=== PATIENT | male | born 1955 | race Caucasian/White ===

== ENCOUNTER 2021-01-22 23:14 | Inpatient (IN) | payer OTHER, SELFPAY ==
[2021-01-22] VITALS (8 sets, daily range): BP systolic 152–155; BP diastolic 106–108; PULSE 79–88; RESP 18–24; TEMP 36.6; O2SAT 87–96
--- NOTE | ~2021-01-22 | XR_ITS ---
EXAMINATION: XR chest 1V portable EXAM DATE: 01/24/2021 13:32 INDICATION: SOB, COVID+ PNA. TECHNIQUE: Portable AP frontal chest x-ray was obtained. Comparison is made to prior examination from 01/23/2021. FINDINGS: Mild progression in the patchy bilateral acute airspace disease identified yesterday. No pn eumothorax or pleural effusion. Mild cardiomegaly. There are no osseous abnormalities identified. IMPRESSION: Mild progression in pneumonia. Reviewed, dictated and finalized at location A.
--- NOTE | ~2021-01-22 | CT_ITS ---
EXAMINATION: CTA chest PE protocol DATE: 01/23/2021 01:55 INDICATION: Shortness of breath. Hypoxia. TECHNIQUE: Computed tomography angiography (CTA) of the chest was performed with 100 mL Omnipaque-350 intravenous contrast timed to evaluate the pulmonary arteries. Coronal maximum intensity projection 3D-reconstructions were created by the technologist. Automated exposure control and iterative reconst ruction technique were employed. Exam dose: 653.85 mGy-cm total exam DLP. COMPARISON: 01/23/2021 AP and lateral chest FINDINGS: There is diagnostic contrast enhancement of the pulmonary arteries. There are posterolatera l and posteromedial left lower lobe pulmonary artery filling defects, consistent with left lower lobe pulmonary embolism. No thoracic aortic aneurysm or dissection. Normal heart size. No pericardial or pleural effusion. There are mild bilateral pleural effusions. There are patchy bilateral upper lobe, middle lobe and lower lobe infiltrates and bilateral lower lob e dependent atelectasis. No pneumothorax. 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 IMPRESSION: Mild left lower lobe pulmonary embolism Diffuse patchy bilateral pulmonary infiltrates Mild pleural effusions Dr. Forman telephoned the report of multiple left lower lobe small pulmonary emboli on 01/23/2021 at 08 50 hours to emergency room physician Dr. Toribio. Reviewed, dictated and finalized at Location A. Reviewed, dictated and finalized at location A. IMPRESSION: Mild left lower lobe pulmonary embolism Diffuse patchy bilateral pulmonary infiltrates Mild pleural effusions Dr. Forman telephoned the report of multiple left lower lobe small pulmonary embo li on 01/23/2021 at 0850 hours to emergency room physician Dr. Toribio.
--- NOTE | ~2021-01-22 | US_ITS ---
EXAMINATION: US venous doppler [facility] DATE: 01/26/2021 17:20 INDICATION: Right lower limb edema. TECHNIQUE: Grayscale ultrasound images without and with compression and Doppler ultrasound images of the bilateral lower extremity veins were obtained. COMPARISON: None. FINDINGS: The visualized portions of right common femoral vein, profunda (deep) femoral vein, femoral vein, pop liteal vein, peroneal veins, and greater saphenous vein outflow are patent. There is thrombus in a ri ght posterior tibial vein. The visualized portions of left common femoral vein, profunda femoral vein, femoral vein, popliteal v ein, peroneal veins, posterior tibial veins, and greater saphenous vein outflow are patent. IMPRESSION: 1. Deep vein thrombosis involving a right posterior tibial vein. Reviewed, dictated and finalized at location A.
--- NOTE | ~2021-01-22 | XR_ITS ---
XR chest 2V DATE: 01/23/2021 00:19 INDICATION: Shortness of breath, hypoxia TECHNIQUE: AP and lateral views COMPARISON: None FINDINGS: Normal heart size. No hilar or mediastinal enlargement. There are mild patchy infiltrates, greater in the lower lung zones. There is mild prominence of the fissures which may indicate subpleural edema. Small posterior pleural effusions are suggested. No pneumothorax. IMPRESSION: Mild patchy bilateral pulmonary infiltrates, small pleural effusions Reviewed, dictated and finalized at location A. IMPRESSION: Mild patchy bilateral pulmonary infiltrates, small pleural effusion s
--- NOTE | 2021-01-22 23:26 | PC.NURSE ---
Patient was placed on 2L via NC and O2 sat increased to 90%, increased O2 to 3L, patient O2 sat now at 92%.
[2021-01-23] VITALS (53 sets, daily range): BP systolic 127–172; BP diastolic 83–114; PULSE 70–92; RESP 14–35; TEMP 35.9–37.8; O2SAT 88–99; BMI 31.0
--- NOTE | 2021-01-23 00:01 | ECG_ITS ---
Measurements Intervals [place] Rate: 82 P: 45 NH: 147 QRS: 62 QRSD: 94 T: 110 QT: 387 QTc: 453 Interpretive Statements SINUS RHYTHM DELAYED PRECORDIAL R/S TRANSITION T WAVE ABNORMALITY IN ANTERIOR LEADS- CONSIDER ISCHEMIA BASELINE ARTIFACT- I, II, III, AVR, AVL, AVF, V3-V6 ABNORMAL ECG Electronically Signed On 01-23-2021 7:36:01 CDT by Dallas Lock D.O.
[2021-01-23 00:27] LABS: Basophils Absolute Auto 0.1 K/mm3 (0.0-0.1); Basophils Percent Auto 0.5 % (0.2-1.2); Eosinophils Percent Auto 0.2 % (0-4.4); Hematocrit 41.8 % (42.0-52.0); Hemoglobin 14.1 g/dL (14.0-18.0); Immature Granulocyte Absolute 0.03 K/mm3 (0.00-0.031); Immature Granulocyte Percent A 0.3 % (0-0.5); Lymphocytes Absolute Auto 1.42 K/mm3 (0.9-3.2); Lymphocytes Percent Auto 14.9 % (18.3-44.2); Mean Corpuscular HGB Conc 33.7 g/dl (32-36); Mean Corpuscular Hemoglobin 31.9 pg (26-34); Mean Corpuscular Volume 94.6 fl (80-100); Mean Platelet Volume 11.8 fl (7.4-10.4); Monocytes Absolute Auto 0.6 K/mm3 (0.1-0.6); Monocytes Percent Auto 6.7 % (2.6-8.5); Neutrophils Absolute Auto 7.4 K/mm3 (1.3-6.7); Neutrophils Percent Auto 77.4 % (45.5-73.1); Platelet Count Result 163 k/mm3 (150-375); Red Blood Count 4.42 M/mm3 (4.6-6.20); Red Cell Distribution Width 16.1 % (11.5-14.5); White Blood Count 9.6 K/mm3 (4.5-10.0)
[2021-01-23 00:37] LABS: Anion Gap 13 mmol/L (8-16); Blood Urea Nitrogen 18 mg/dL (9-20); Carbon Dioxide 27 mmol/L (22-30); Chloride 99 mmol/L (98-107); Estimated CRCL calculation 92 ml/min; Estimated Glomerular Filt Rate > 60; Glucose 112 mg/dL (65-110); Potassium 3.2 mmol/L (3.4-5.0); Sodium 139 mmol/L (137-145)
[2021-01-23 01:24] LABS: Alanine Aminotransferase 85 U/L (4-50); Albumin Level 4.3 g/dL (3.5-5.1); Alkaline Phosphatase 89 U/L (38-126); Aspartate Amino Transferase 68 U/L (17-59); Bilirubin,Total 1.7 mg/dL (0.2-1.3); Magnesium 1.6 mg/dL (1.6-2.3)
[2021-01-23 01:26] LABS: INR 1.1; Prothrombin Time 13.7 Seconds (11.1-14.7)
[2021-01-23 01:27] LABS: Partial Thromboplastin Time 28.3 SECONDS (22.3-36.8)
[2021-01-23] MEDS: SODIUM CHLORIDE 0.9% IV 1,000 ML 999 ML IV CONT (01:37)
[2021-01-23 01:42] LABS: NT Pro B Type Natriuretic Pept 8880 pg/mL (5-100); Troponin I 0.043 ng/mL (0.000-0.034)
[2021-01-23 01:50] LABS: Lactic Acid Reflex 1.6 mmol/L (0.7-2.1)
--- NOTE | 2021-01-23 02:15 | ED.GENADULT ---
HPI - General Adult General Chief complaint: Shortness of Breath/Dyspnea Stated complaint: shortness of breath Time Seen by Provider: 01/23/21 00:55 History of Present Illness HPI narrative: Patient is a 65-year-old gentleman who presents the emergency department with chief complaint of shortness of breath. Patient reports that over the last several days he has been having episodes of feeling short of breath. The patient states it feels similar to whenever he has had bouts of atrial fibrillation states that he was treated for pneumonia about a month ago and reports that he gets worse with exertion. Patient reports he had a little bit of trace edema in his lower extremities and reports that at times he is felt as though his heart rates been irregular. The patient states has not not been diagnosed with congestive heart failure before in the past when the patient presented to triage he was found to have a room air saturation of 87% and the patient is not on home oxygen. Related Data Home Medications Medication Instructions Recorded Confirmed Centrum Silver Men 01/22/21 atenolol 01/22/21 simvastatin 01/22/21 venlafaxine mg 01/22/21 Allergies Allergy/AdvReac Type Severity Reaction Status Date / Time No Known Allergies Allergy Verified 01/22/21 23:28 Review of Systems Review of Systems: A 10 system review of systems was completed on the patient and is negative except for what is stated in the HPI. Nursing and ancillary documentation was reviewed. Exam Narrative: GENERAL: Well-appearing, well-nourished, and in no acute distress. HEAD: Normocephalic, atraumatic. EYES: PERRLA and EOMI. ENT: Nares clear, no rhinorrhea or epistaxis. Mucous membranes moist. NECK: Supple. CHEST: Clear to auscultation. No respiratory distress. HEART: Regular rate and rhythm. No murmur heard. Normal peripheral pulses. ABDOMEN: Soft, nontender, nondistended, normal active bowel sounds. EXTREMITIES: Normal range of motion. No edema. SKIN: Warm, dry, no rash. NEURO: No focal deficits. Alert and oriented x3. PSYCH: Normal mood and affect. Course Vital Signs Vital signs: Vital Signs Temperature 36.6 C 01/22/21 23:21 Pulse Rate 88 01/22/21 23:21 Respiratory Rate 24 H 01/22/21 23:21 Blood Pressure 152/108 H 01/22/21 23:21 Pulse Oximetry 87 L 10/09/21 23:21 Temperature 37.8 C H 01/23/21 01:03 Pulse Rate 75 01/23/21 02:13 Respiratory Rate 16 01/23/21 02:13 Blood Pressure 170/100 H 01/23/21 02:13 Pulse Oximetry 95 01/23/21 02:13 Medical Decision Making Vital Signs Vital Signs: Vital Signs Temperature 36.6 C 01/22/21 23:21 Pulse Rate 88 01/22/21 23:21 Respiratory Rate 24 H 01/22/21 23:21 Blood Pressure 152/108 H 01/22/21 23:21 Pulse Oximetry 87 L 01/22/21 23:21 Temperature 37.8 C H 01/23/21 01:03 Pulse Rate 75 01/23/21 02:13 Respiratory Rate 16 01/23/21 02:13 Blood Pressure 170/100 H 01/23/21 02:13 Pulse Oximetry 95 01/23/21 02:13 Lab Data Result diagrams: 01/23/21 00:18 01/23/21 00:18 Labs: Lab Results 01/23/21 01/23/21 01/23/21 Range/Units 00:18 00:18 00:18 WBC 9.6 (4.5-10.0) K/mm3 RBC 4.42 L (4.6-6.20) M/mm3 Hgb 14.1 (14.0-18.0) g/dL Hct 41.8 L (42.0-52.0) % MCV 94.6 (80-100) fl MCH 31.9 (26-34) pg MCHC 33.7 (32-36) g/dl RDW 16.1 H (11.5-14.5) % Plt Count 163 (150-375) k/mm3 MPV 11.8 H (7.4-10.4) fl Immature Gran % (Auto) 0.3 (0-0.5) % Neut % (Auto) 77.4 H (45.5-73.1) % Lymph % (Auto) 14.9 L (18.3-44.2) % [place] % (Auto) 6.7 (2.6-8.5) % Eos % (Auto) 0.2 (0-4.4) % Baso % (Auto) 0.5 (0.2-1.2) % Lymph # (Auto) 1.42 (0.9-3.2) K/mm3 [place] # (Auto) 0.6 (0.1-0.6) K/mm3 Eos # (Auto) 0.0 (0-0.3) K/mm3 Baso # (Auto) 0.1 (0.0-0.1) K/mm3 Abs Immat Gran (auto) 0.03 (0.00-0.031) K/mm3 Absolute Neuts (auto) 7.4 H (1.3-6.7)
[2021-01-23] MEDS: DEXAMETHASONE SOD PHOS INJ 4 MG/ML VIAL 6 MG IV PUSH (02:48)
[2021-01-23] MEDS: ASPIRIN 81 MG CHEWABLE TABLET 324 MG PO (02:59)
[2021-01-23] MEDS: POTASSIUM CHLORIDE 20 MEQ PACKET (FOR LIQUID) 40 MEQ PO (03:59)
[2021-01-23 04:32] LABS: Troponin I 0.044 ng/mL (0.000-0.034)
--- NOTE | 2021-01-23 07:59 | PM.IMHP ---
H&P: HPI History of Present Illness Date/Time: 01/23/21 07:59 Chief Complaint: Dyspnea PMFSH Family History Family History (Updated 01/23/21 @ 07:46 by Carmelina Navarro RN) Father Cerebrovascular accident Hyperthyroidism Neuropathy Grandparent Diabetes mellitus Grandparent Breast cancer Sibling Rheumatoid arthritis Neuropathy Mother Rheumatoid arthritis Social History Social History Smoking status: Never smoker Alcohol intake: current Drinks per week: 14 Substance use: never Spiritual care concerns: No Meds Home Medications and Allergies Home Medications Medication Instructions Recorded Confirmed Type Centrum Silver Men 1 tablet PO DAILY 01/22/21 01/23/21 History simvastatin 40 mg PO DAILY 01/22/21 01/23/21 History albuterol sulfate 2 puff INHALATION Q4H PRN 01/23/21 01/23/21 History atenolol 100 mg PO DAILY 01/23/21 01/23/21 History buspirone 5 mg PO BID PRN 01/23/21 01/23/21 History diltiazem HCl 100 mg PO Q12H 01/23/21 01/23/21 History venlafaxine 75 mg PO TID 01/23/21 01/23/21 History Allergies Allergy/AdvReac Type Severity Reaction Status Date / Time No Known Allergies Allergy Verified 01/23/21 07:53 Vital Signs Vital Signs - 24 hr 01/22/21 23:21 01/22/21 23:28 01/22/21 23:29 Temperature 97.8 F Pulse Rate 88 82 Respiratory Rate 24 H Blood Pressure 152/108 H Pulse Oximetry 87 L 93 91 01/22/21 23:30 01/22/21 23:31 01/22/21 23:45 Temperature Pulse Rate 83 79 Respiratory Rate 18 Blood Pressure 155/106 H Pulse Oximetry 92 96 01/22/21 23:46 01/22/21 23:47 01/23/21 00:00 Temperature Pulse Rate 80 81 Respiratory Rate 19 Blood Pressure 155/107 H Pulse Oximetry 93 95 97 01/23/21 00:01 01/23/21 00:16 01/23/21 00:17 Temperature Pulse Rate 78 Respiratory Rate Blood Pressure Pulse Oximetry 95 93 94 01/23/21 00:30 01/23/21 00:31 01/23/21 00:45 Temperature Pulse Rate Respiratory Rate Blood Pressure 157/112 H Pulse Oximetry 93 93 95 01/23/21 00:46 01/23/21 01:00 01/23/21 01:02 Temperature Pulse Rate 79 Respiratory Rate 14 Blood Pressure 162/111 H 134/105 H Pulse Oximetry 94 96 94 01/23/21 01:03 01/23/21 01:15 01/23/21 01:16 Temperature 100.1 F H Pulse Rate 77 Respiratory Rate 22 H Blood Pressure 134/105 H 158/114 H Pulse Oximetry 93 93 93 01/23/21 01:30 01/23/21 01:31 01/23/21 02:06 Temperature Pulse Rate Respiratory Rate Blood Pressure Pulse Oximetry 96 94 96 01/23/21 02:13 01/23/21 02:15 01/23/21 02:30 Temperature Pulse Rate 75 76 Respiratory Rate 16 Blood Pressure 170/100 H Pulse Oximetry 95 93 92 01/23/21 02:45 01/23/21 03:00 01/23/21 03:15 Temperature Pulse Rate 79 77 Respiratory Rate Blood Pressure Pulse Oximetry 94 92 94 01/23/21 03:30 01/23/21 03:45 01/23/21 03:59 Temperature Pulse Rate 72 72 72 Respiratory Rate 18 Blood Pressure 172/102 H Pulse Oximetry 94 94 96 01/23/21 04:00 01/23/21 04:15 01/23/21 04:30 Temperature Pulse Rate 73 72 72 Respiratory Rate 25 H 23 H 26 H Blood Pressure Pulse Oximetry 96 95 95 01/23/21 04:45 01/23/21 05:00 01/23/21 05:15 Temperature Pulse Rate 73 70 70 Respiratory Rate 24 H 35 H Blood Pressure Pulse Oximetry 96 93 92 01/23/21 05:30 01/23/21 06:29 01/23/21 06:37 Temperature 97.3 F L Pulse Rate 70 79 71 Respiratory Rate 16 18 Blood Pressure 155/103 H Pulse Oximetry 93 95 94 H&P: Results Labs Labs: Short CBC 01/23/21 Range/Units 00:18 WBC 9.6 (4.5-10.0) K/mm3 Hgb 14.1 (14.0-18.0) g/dL Hct 41.8 L (42.0-52.0) % Plt Count 163 (150-375) k/mm3 BMP 01/23/21 00:18 Sodium 139 Potassium 3.2 L Chloride 99 Carbon Dioxide 27 BUN 18 Creatinine 0.90 Glucose 112 H Calcium 9.0 Cardiac Enzymes 01/23/21 01/23/21 Ra
--- NOTE | 2021-01-23 08:00 | PC.NURSE ---
This patient, Cristi Callejas, was admitted to IMU Room 211-01. Patient/family oriented to hospital policies and general routines including ID bracelet, bed and alarms, visiting hours, pain management, procedures, bathroom and other care routines, personal items, smoking policy, room service/diet, and visiting hours. Information on how to activate the Rapid Response Team has been discussed. Patient/Family are encouraged to report perceived risks to care and to ask questions if they do not understand what they are told or what they should do.
[2021-01-23] MEDS: ISOSORBIDE MONONITRATE 60 MG TAB.ER.24H PO (09:03)
[2021-01-23] MEDS: POTASSIUM CHLORIDE 20 MEQ TABLET 40 MEQ PO (09:03)
[2021-01-23] MEDS: ASPIRIN 81 MG CHEWABLE TABLET PO (09:04)
[2021-01-23] MEDS: METOPROLOL TARTRATE 25 MG TABLET PO ×2 (09:04→20:35)
[2021-01-23] MEDS: ENOXAPARIN 40 MG/0.4 ML SYRINGE SUB-Q (09:04)
[2021-01-23 10:23] LABS: Magnesium 1.7 mg/dL (1.6-2.3)
[2021-01-23 10:37] LABS: Troponin I 0.031 ng/mL (0.000-0.034)
[2021-01-23 11:05] LABS: Free T4 Free Thyroxine 1.79 ng/mL (0.78-2.19)
[2021-01-23 16:30] LABS: Troponin I 0.022 ng/mL (0.000-0.034)
[2021-01-23] MEDS: APIXABAN 5 MG TABLET 10 MG PO (20:35)
[2021-01-23 22:24] LABS: Troponin I 0.018 ng/mL (0.000-0.034)
[2021-01-24] VITALS (19 sets, daily range): BP systolic 137–158; BP diastolic 83–107; PULSE 69–101; RESP 20–24; TEMP 36.5–37.4; O2SAT 88–98
[2021-01-24 04:48] LABS: INR 1.2; Prothrombin Time 14.8 Seconds (11.1-14.7)
[2021-01-24 04:57] LABS: Alanine Aminotransferase 64 U/L (4-50); Albumin Level 3.9 g/dL (3.5-5.1); Alkaline Phosphatase 72 U/L (38-126); Anion Gap 8 mmol/L (8-16); Aspartate Amino Transferase 47 U/L (17-59); Bilirubin,Total 0.8 mg/dL (0.2-1.3); Blood Urea Nitrogen 19 mg/dL (9-20); Calcium 8.7 mg/dL (8.4-10.2); Carbon Dioxide 28 mmol/L (22-30); Chloride 100 mmol/L (98-107); Cholesterol 164 mg/dL (0-200); Estimated CRCL calculation 102 ml/min; Estimated Glomerular Filt Rate > 60; Glucose 131 mg/dL (65-110); HDL Direct 48 mg/dL; Potassium 2.9 mmol/L (3.4-5.0); Sodium 136 mmol/L (137-145); Triglycerides 123 mg/dL (<150)
--- NOTE | 2021-01-24 05:00 | ECG_ITS ---
Measurements Intervals [place] Rate: 91 P: 29 SC: 138 QRS: 47 QRSD: 94 T: 59 QT: 390 QTc: 481 Interpretive Statements SINUS RHYTHM DELAYED PRECORDIAL R/S TRANSITION BORDERLINE ST-T WAVE ABNORMALITY- INF/HIGH LAT LEADS BASELINE ARTIFACT- I, II, III, AVR, AVL, AVF BORDERLINE ECG Electronically Signed On 01-24-2021 14:33:33 CDT by Dallas Lock D.O.
[2021-01-24 05:07] LABS: LDL Cholesterol Direct 97 mg/dL
--- NOTE | 2021-01-24 08:22 | PM.IMPN ---
Progress Note: A&P Additional Plan START OF DOCTOR LEX?S PROGRESS NOTE Subjective: The patient indicates that he is feeling less short of breath as he did when he presented to the emergency department. He also complains of mild left lower sternal chest pain. He indicates that he felt as though he has subjective fever overnight. He missed palpitations and sensation rapid heartbeat. He denies rigors, nausea, vomiting, wheeze, abdominal pain. Explained to the patient his current medical condition plan of care and I have answered all his questions Objective: General: -Alert -No acute distress -No dyspnea -No tachypnea Heart: -Regular rate -Regular rhythm -No murmurs -No gallops -No rubs Lungs: -No wheeze -No rhonchi -No rales Abdomen: -Normal bowel sounds in all four quadrants -No rebound -No guarding -No tenderness Extremities: -2/4 pulse in all four extremities -No clubbing -No cyanosis -No edema Additional Details / Additional Findings / Exceptions / Miscellaneous: Pertinent Laboratory Results / Pertinent Radiology Results / Pertinent Diagnostic Results / Pertinent Vital Signs: Blood pressure 141/94, pulse 81, patient saturating 95% on 4 L, sodium 136, potassium 2.9 Assessment / Plan: Pneumonia. A Zithromax 500 mg IV daily plus Rocephin 1 g IV daily. COVID-19 testing pending Pulmonary embolism. Eliquis 10 mg p.o. b.i.d. a until 11:59 p.m. on January 29, 2021 then 5 mg p.o. b.i.d. thereafter. Currently pending: Protein C, protein S, factor 5 Leiden, anticardiolipin antibody Transaminitis. Likely a sequelae of daily alcohol use. Will monitor LFTs periodically with CMP along with PT/INR Hypokalemia. Will monitor potassium levels intermittently and supplements as necessary Elevated troponin, query ACS. Troponins are flat. This may represent cardiac strain from pulmonary embolism. Monitor patient on telemetry and check serial cardiac enzymes, TSH, free T4, magnesium level. In the morning will check fasting lipid panel recheck recheck EKG. Aspirin 81 mg p.o. daily plus metoprolol 50 mg p.o. b.i.d. plus Imdur 60 mg p.o. daily. No statin at this time due to elevated liver function test. Echocardiogram pending Depression Hyperlipidemia. Check fasting lipid panel. Initiate statin if excessively elevated Hypertension. Metoprolol 50 mg p.o. q.12 hours post Imdur 60 mg p.o. daily DVT prophylaxis. Eliquis 10 mg p.o. b.i.d. a until 11:59 p.m. on January 29, 2021 then 5 mg p.o. b.i.d. thereafter Disposition: END OF DOCTOR LEX?S PROGRESS NOTE Subjective Date/time seen: 01/24/21 08:22 Objective Data Vital Signs Vital Signs: Vital Signs - 24 hr 01/23/21 08:59 01/23/21 09:04 01/23/21 09:25 Temperature 97.5 F L Pulse Rate 71 71 Respiratory Rate 18 Blood Pressure 144/93 H Pulse Oximetry 96 96 01/23/21 10:00 01/23/21 12:00 01/23/21 14:00 Temperature 96.6 F L Pulse Rate 74 73 76 Respiratory Rate 16 Blood Pressure 127/83 Pulse Oximetry 95 01/23/21 16:00 01/23/21 17:15 01/23/21 17:55 Temperature 96.6 F L Pulse Rate 71 77 Respiratory Rate 18 Blood Pressure 133/86 Pulse Oximetry 95 98 95 01/23/21 18:00 01/23/21 18:24 01/23/21 20:00 Temperature 97.4 F L Pulse Rate 81 78 Respiratory Rate 18 Blood Pressure 132/93 H Pulse Oximetry 94 95 01/23/21 20:35 01/23/21 22:00 01/23/21 23:16 Temperature Pulse Rate 92 70 Respiratory Rate Blood Pressure Pulse Oximetry 88 L 01/23/21 23:50 01/24/21 00:00 01/24/21 00:15 Temperature 98 F Pulse Rate 80 78 Respiratory Rate 20 Blood Pressure 145/93 H Pulse Oximetry 92 92 01/24/21 01:57 01/24/21 04:00 01/24/21 06:00 Temperature 98.2 F Pulse Rate 78 84 81 Respiratory Rate 22 H Blood Pressure 149/99 H Pulse Oximetry 91 01/24/21 07:01 Temperature 97.8 F Pulse Rate 81 Respiratory Rate 20 Blood Pressure 141/94 H Pulse Oximetr
[2021-01-24 10:22] LABS: Alveolar/Arterial O2 Gradient 324.8 mmHg; Base Excess ABG 0.9 mEq/l (+/-2.0); Fractional Inspired Oxygen 60 %; Oxygen Content ABG 17.3 %vol (16.0-22.0); Oxygen Saturation ABG 94.3 % (95.0-100.0); Oxyhemoglobin 91.2 % THb (90.0-100.0); PCO2 ABG 33.7 mmHg (35.0-45.0); PO2 ABG 65.9 mmHg (80.0-100.0); Total Hemoglobin 13.5 g/dL (12.0-18.0)
[2021-01-24 10:24] LABS: Device HIGH FLOW NASAL CANN; Modified Allen's Test Pass; Site Drawn LEFT RADIAL
[2021-01-24] MEDS: APIXABAN 5 MG TABLET 10 MG PO ×2 (11:03→21:00)
[2021-01-24] MEDS: ISOSORBIDE MONONITRATE 60 MG TAB.ER.24H PO (11:03)
[2021-01-24] MEDS: METOPROLOL TARTRATE 50 MG TAB PO ×2 (11:03→21:00)
[2021-01-24] MEDS: ASPIRIN 81 MG CHEWABLE TABLET PO (11:04)
[2021-01-24] MEDS: POTASSIUM CHLORIDE 20 MEQ TABLET 40 MEQ PO ×2 (11:06→13:49)
[2021-01-24] MEDS: guaiFENesin/DEXTROMETHORPHAN 10 ML UDC PO ×2 (11:17→21:03)
--- NOTE | 2021-01-24 11:29 | PC.NURSE ---
Patients called to notify me that Cristi drinks daily and he would consider him an alcoholic. Patient admits to drinking 750 ML of vodka daily. SIWA scale 9. Notified Dr. Lima and Dr. dang that we watch patient for possible withdraw symptoms.
[2021-01-24] MEDS: ACETAMINOPHEN 325 MG TABLET 650 MG PO (17:47)
[2021-01-24 20:20] LABS: SARS-CoV-2 RNA PCR Negative
[2021-01-25] VITALS (19 sets, daily range): BP systolic 120–169; BP diastolic 76–105; PULSE 65–93; RESP 20–24; TEMP 36.2–36.8; O2SAT 90–96
--- NOTE | 2021-01-25 | ECHO_ITS ---
Patient Info Name: Cristi Callejas Age: 65 years : 1955 Gender: Male Ht: 72 in Wt: 228 lbs BSA: 2.32 m2 HR: 64 bpm BP: 154 / 100 mmHg Heart Rhythm: Sinus Rhythm Exam Date: 01/25/2021 11:49 AM Exam Location: [facility] Patient Status: Inpatient Admit Date: 01/23/2021 Staff Ordering Physician: Rich Lima DO Coremaker Apprentice: Torsten Phelps RDCS, RT Attending Provider: Kate Estrada DO Referring Physician: Janie SANDOVAL; Exam Type: CA echo doppler color flow Study Info Indications I50.9 - Heart failure, unspecified Complete two-dimensional, color flow and Doppler transthoracic echocardiogram is performed. Strain analysis performed. Summary 1. Technically difficult study with limited views. Regional wall motion assessment limited due to poor endomyocardial border definition in several views. 2. Left ventricular systolic function is moderately reduced, estimated at 40%. 3. Global longitudinal strain is mildly elevated at -13 %. 4. Left ventricular chamber dimension is mildly enlarged. 5. There is mildly increased left ventricular wall thickness. 6. Left atrial chamber dimension is moderately enlarged. 7. There is no aortic valve stenosis. 8. There is mild tricuspid valve regurgitation. 9. Moderate pulmonary hypertension, estimated pulmonary arterial systolic pressure is 48 mmHg. Left Ventricle Left ventricular systolic function is moderately reduced, estimated at 40%. Global longitudinal strain is mildly elevated at -13 %. Left ventricular chamber dimension is mildly enlarged. There is mildly increased left ventricular wall thickness. Left ventricular septal wall motion is abnormal with septal motion related to bundle branch block. The left ventricular diastolic function is abnormal. Technically difficult study with limited views. Regional wall motion assessment limited due to poor endomyocardial border definition in several views. Right Ventricle Right ventricular chamber dimension is normal. Right ventricular systolic function is normal. Left Atria Left atrial chamber dimension is moderately enlarged. Right Atria Right atrial chamber dimension is mildly enlarged. Aortic Valve The aortic valve is not well visualized. There is no aortic valve stenosis. There is no aortic valve regurgitation. Pulmonic Valve The pulmonic valve is not well visualized. There is trace pulmonic regurgitation. Mitral Valve The mitral valve has normal leaflets. There is mild mitral valve regurgitation. The mitral valve annulus is mildly calcified. Tricuspid Valve The tricuspid valve leaflets are normal. There is mild tricuspid valve regurgitation. Moderate pulmonary hypertension, estimated pulmonary arterial systolic pressure is 48 mmHg. Pericardium/Pleural The pericardium appears normal. There is trivial pericardial effusion. Inferior Vena Cava Dilated inferior vena cava with <50% collapse upon inspiration consistent with elevated right atrial pressure, 10 mmHg. Aorta The aortic root size at the sinus of Valsalva is normal. There is mild-moderate aortic atherosclerosis. Left Ventricular Outflow Tract Name Value Normal LVOT 2D LVOT Diameter 2.1 cm
[2021-01-25] MEDS: guaiFENesin/DEXTROMETHORPHAN 10 ML UDC PO ×2 (03:23→09:28)
[2021-01-25 05:36] LABS: Alanine Aminotransferase 63 U/L (4-50); Albumin Level 3.8 g/dL (3.5-5.1); Alkaline Phosphatase 73 U/L (38-126); Anion Gap 8 mmol/L (8-16); Aspartate Amino Transferase 42 U/L (17-59); Bilirubin,Total 1.3 mg/dL (0.2-1.3); Blood Urea Nitrogen 12 mg/dL (9-20); Calcium 8.7 mg/dL (8.4-10.2); Carbon Dioxide 28 mmol/L (22-30); Chloride 101 mmol/L (98-107); Estimated CRCL calculation 118 ml/min; Estimated Glomerular Filt Rate > 60; Glucose 101 mg/dL (65-110); Potassium 3.3 mmol/L (3.4-5.0); Sodium 137 mmol/L (137-145)
[2021-01-25] MEDS: ISOSORBIDE MONONITRATE 60 MG TAB.ER.24H PO (09:20)
[2021-01-25] MEDS: APIXABAN 5 MG TABLET 10 MG PO ×2 (09:20→21:08)
[2021-01-25] MEDS: METOPROLOL TARTRATE 50 MG TAB PO ×2 (09:20→21:08)
[2021-01-25] MEDS: ASPIRIN 81 MG CHEWABLE TABLET PO (09:20)
[2021-01-25] MEDS: guaiFENesin 12 HR 600 MG TABCR PO ×2 (12:21→21:08)
[2021-01-25 12:40] LABS: Glucose Point of Care 96 mg/dl (65-105)
--- NOTE | 2021-01-25 14:26 | PM.IMPN ---
Progress Note: A&P Assessment and Plan (1) Community acquired pneumonia: Qualifiers: Laterality: unspecified laterality Qualified Code(s): J18.9 - Pneumonia, unspecified organism Code(s): J18.9 - Pneumonia, unspecified organism Status: Acute Assessment and Plan: SEE BELOW (2) Hypoxia: Code(s): R09.02 - Hypoxemia Status: Acute (3) Person under investigation for COVID-19: Code(s): Z20.822 - Contact with and (suspected) exposure to COVID-19 Status: Acute (4) Pulmonary embolism: Code(s): I26.99 - Other pulmonary embolism without acute cor pulmonale Status: Acute Additional Plan Assessment / Plan: Pneumonia. A Zithromax 500 mg IV daily plus Rocephin 1 g IV daily. COVID-19 testing pending Pulmonary embolism. Eliquis 10 mg p.o. b.i.d. a until 11:59 p.m. on January 29, 2021 then 5 mg p.o. b.i.d. thereafter. Currently pending: Protein C, protein S, factor 5 Leiden, anticardiolipin antibody Transaminitis. Likely a sequelae of daily alcohol use. Will monitor LFTs periodically Hypokalemia. Will monitor potassium levels intermittently and supplements as necessary Elevated troponin, query ACS. Troponins are flat. This may represent cardiac strain from pulmonary embolism. Monitor patient on telemetry and check serial cardiac enzymes, TSH, free T4, magnesium level. In the morning will check fasting lipid panel recheck recheck EKG. Aspirin 81 mg p.o. daily plus metoprolol 50 mg p.o. b.i.d. plus Imdur 60 mg p.o. daily. No statin at this time due to elevated liver function test. Echocardiogram pending Depression Hyperlipidemia. Check fasting lipid panel. Initiate statin if excessively elevated Hypertension. Metoprolol 50 mg p.o. q.12 hours post Imdur 60 mg p.o. daily DVT prophylaxis. Eliquis 10 mg p.o. b.i.d. a until 11:59 p.m. on January 29, 2021 then 5 mg p.o. b.i.d. thereafter Subjective Date/time seen: 01/25/21 14:26 Interval history: 62-year-old male who presents she claimed to dyspnea. He states he developed pneumonia approximately 1 month prior to hospitalization. Admitted with pneumonia and PE and HTN CTa shows PE, Echo shows EF of 45 %. Covid tests are pending Review of Systems Review of Systems: All systems reviewed & are unremarkable except as noted in HPI and below Exam Const: General: tired appearing and other (on oxygen ) Orientation/consciousness: oriented to person HENMT: Head: normal to inspection Resp: Effort & Inspection: no respiratory distress Auscultation: no rhonchi and no wheezes Cardio: Rate: regular rate Rhythm: regular rhythm GI: Inspection: normal to inspection GI Palp: No abdominal tenderness, No Guarding due to palpation present (GI) and No Hepatomegaly present Auscultation: normal bowel sounds Neuro: General: oriented to person Objective Data Vital Signs Vital Signs: Vital Signs - 24 hr 01/24/21 14:54 01/24/21 16:00 01/24/21 18:00 Temperature 37.4 C Pulse Rate 87 90 Respiratory Rate 24 H Blood Pressure 153/107 H Pulse Oximetry 92 95 01/24/21 20:00 01/24/21 21:00 01/24/21 22:00 Temperature 36.7 C Pulse Rate 77 78 82 Respiratory Rate 20 Blood Pressure 137/89 Pulse Oximetry 98 01/24/21 23:40 01/25/21 00:00 01/25/21 02:00 Temperature 36.5 C Pulse Rate 69 67 84 Respiratory Rate 20 Blood Pressure 143/83 H Pulse Oximetry 95 96 96 01/25/21 04:00 01/25/21 05:27 01/25/21 06:00 Temperature 36.8 C Pulse Rate 83 80 Respiratory Rate 20 Blood Pressure 169/99 H 154/100 H Pulse Oximetry 90 94 01/25/21 08:00 01/25/21 08:36 01/25/21 10:00 Temperature 36.2 C L Pulse Rate 78 80 77 Respiratory Rate 22 H Blood Pressure 150/105 H Pulse Oximetry 92 94 01/25/21 10:19 01/25/21 12:00 01/25/21 12:50 Temperature 36.8 C Pulse Rate 75 73 67 Respiratory Rate 24 H Blood Pressure 137/88 Pulse Oximetry 92 92 93 Intake/Output Inta
[2021-01-25 16:22] LABS: SARS-CoV-2 RNA PCR Negative
[2021-01-25] MEDS: VENLAFAXINE HCL 75 MG TABLET PO (17:47)
[2021-01-26] VITALS (17 sets, daily range): BP systolic 122–170; BP diastolic 68–100; PULSE 55–85; RESP 12–20; TEMP 36.5–37.2; O2SAT 93–99
[2021-01-26] MEDS: APIXABAN 5 MG TABLET 10 MG PO ×2 (08:21→20:44)
[2021-01-26] MEDS: ISOSORBIDE MONONITRATE 60 MG TAB.ER.24H PO (08:21)
[2021-01-26] MEDS: guaiFENesin/DEXTROMETHORPHAN 10 ML UDC PO (08:21)
[2021-01-26] MEDS: dilTIAZem HCL CD 180 MG CAP.ER.24H 360 MG PO (08:21)
[2021-01-26] MEDS: VENLAFAXINE HCL 75 MG TABLET PO ×3 (08:21→17:23)
[2021-01-26] MEDS: guaiFENesin 12 HR 600 MG TABCR PO ×2 (08:22→20:44)
[2021-01-26] MEDS: POTASSIUM CHLORIDE 20 MEQ PACKET (FOR LIQUID) PO ×2 (08:22→17:23)
[2021-01-26] MEDS: MULTIVITAMINS /C LUTEIN (CENTRUM SILVER) TABLET *BKC 1 TAB PO (08:22)
[2021-01-26] MEDS: SIMVASTATIN 20 MG TABLET 40 MG PO (08:22)
[2021-01-26] MEDS: atenoloL 50 MG TABLET 100 MG PO (08:22)
[2021-01-26] MEDS: ASPIRIN 81 MG CHEWABLE TABLET PO (08:23)
[2021-01-26] MEDS: METOPROLOL TARTRATE 50 MG TAB PO ×2 (08:23→20:44)
[2021-01-26 11:15] LABS: Protein S Antigen, Free 185 % normal (57-171); Protein S Antigen, Total 125 % normal (70-140)
--- NOTE | 2021-01-26 14:12 | PM.IMPN ---
Progress Note: A&P Assessment and Plan (1) Community acquired pneumonia: Qualifiers: Laterality: unspecified laterality Qualified Code(s): J18.9 - Pneumonia, unspecified organism Code(s): J18.9 - Pneumonia, unspecified organism Status: Acute Assessment and Plan: SEE BELOW (2) Hypoxia: Code(s): R09.02 - Hypoxemia Status: Acute (3) Person under investigation for COVID-19: Code(s): Z20.822 - Contact with and (suspected) exposure to COVID-19 Status: Acute (4) Pulmonary embolism: Code(s): I26.99 - Other pulmonary embolism without acute cor pulmonale Status: Acute Additional Plan Assessment / Plan: Pneumonia. CAP, COVID ruled out: pt is on Zithromax 500 mg IV daily plus Rocephin 1 g IV daily. COVID-19 is negative. Pulmonary embolism. Eliquis 10 mg p.o. b.i.d. a until 11:59 p.m. on January 29, 2021 then 5 mg p.o. b.i.d. thereafter. Pt has no obvious risk factors, so pt is ordered anticoagulation panel. Protein C, protein S, factor 5 Leiden, anticardiolipin antibody. I will consult hematology. Transaminitis. ? alcohol related Will monitor LFTs periodically Hypokalemia. Pt is on potassium supplements continue to monitor. Troponins are flat. Aspirin 81 mg p.o. daily plus metoprolol 50 mg p.o. b.i.d. plus Imdur 60 mg p.o. daily. No statin at this time due to elevated liver function test. Echocardiogram shows EF of 45 %, pt states he has as long history of HTN, and AF. Systolic CHF- Echocardiogram shows EF of 45 %, pt states he has as long history of HTN, and AF. new diagnosis pt wants to discuss with cardiology consult cardiology. monitor BMP. Depression Hyperlipidemia. Check fasting lipid panel. Hypertension. Metoprolol 50 mg p.o. q.12 hours post Imdur 60 mg p.o. daily DVT prophylaxis. Eliquis 10 mg p.o. b.i.d. a until 11:59 p.m. on January 29, 2021 then 5 mg p.o. b.i.d. thereafter Subjective Date/time seen: 01/26/21 14:12 Interval history: 62-year-old male who presents with SOB. He states he developed pneumonia approximately 1 month prior to hospitalization. Admitted with pneumonia and PE and HTN CTA shows PE, Echo shows EF of 45 %. Covid tests are negative. Pt is from [place]. Pt is SOB with mild cough otherwise is well. Review of Systems Review of Systems: All systems reviewed & are unremarkable except as noted in HPI and below Exam Const: General: tired appearing and other (on oxygen ) Orientation/consciousness: oriented to person HENMT: Head: normal to inspection Resp: Effort & Inspection: no respiratory distress Auscultation: no rhonchi and no wheezes Cardio: Rate: regular rate Rhythm: regular rhythm GI: Inspection: normal to inspection Auscultation: normal bowel sounds Neuro: General: oriented to person Objective Data Vital Signs Vital Signs: Vital Signs - 24 hr 01/25/21 16:00 01/25/21 16:57 01/25/21 18:00 Temperature 36.7 C Pulse Rate 79 79 87 Respiratory Rate 20 20 Blood Pressure 120/80 Pulse Oximetry 94 94 01/25/21 20:00 01/25/21 21:08 01/25/21 22:00 Temperature 36.6 C Pulse Rate 82 82 65 Respiratory Rate 20 Blood Pressure 123/76 Pulse Oximetry 93 01/25/21 23:20 01/26/21 00:00 01/26/21 02:00 Temperature 36.7 C Pulse Rate 85 85 80 Respiratory Rate 20 20 Blood Pressure 139/84 Pulse Oximetry 96 96 01/26/21 02:38 01/26/21 04:00 01/26/21 06:00 Temperature 36.5 C Pulse Rate 55 L 71 68 Respiratory Rate 20 20 Blood Pressure 170/100 H Pulse Oximetry 94 94 01/26/21 08:00 01/26/21 08:20 01/26/21 08:22 Temperature 36.8 C Pulse Rate 72 76 Respiratory Rate 20 Blood Pressure 152/99 H Pulse Oximetry 99 98 01/26/21 08:23 01/26/21 10:00 01/26/21 10:30 Temperature Pulse Rate 76 64 Respiratory Rate Blood Pressure Pulse Oximetry 94 01/26/21 12:00 01/26/21 12:40 Temperature 36.7 C Pulse Rate 74 Respiratory Rate
--- NOTE | 2021-01-26 16:11 | PM.CNCAR ---
Assessment and Plan Assessment and plan (1) Cardiomyopathy: Code(s): I42.9 - Cardiomyopathy, unspecified Status: Acute Assessment and Plan: New diagnosis EF estimated 40% moderate LV dysfunction although technically difficult study with poor endomyocardial border definition. Discussed EF assessment difficult secondary to poor visualization, recommend echo contrast enhancement although will defer in setting of acute pulmonary embolism. Patient is not currently decompensated heart failure despite significant elevation in BNP obtained in setting of acute hypoxia, pneumonia, and acute pulmonary embolism. Suspect primary etiology secondary to excessive alcohol intake although cannot exclude undiagnosed underlying CAD. He is not endorsing symptoms suggestive of angina nor does he have a known history. -Will add FAIZA-inhibitor, discontinue diltiazem and atenolol and transition to Toprol XL for support of cardiomyopathy. -patient extensively counseled on the cardiotoxic effects of excessive alcohol intake and likely explanation for cardiomyopathy. I also explained that given the technical difficulty associated with his echocardiogram it is plausible his LV function is in fact better than could be readily appreciated. Nonetheless, we will give him the benefit of the doubt and further optimize his medical therapy in this regard. He verbalized understanding and agreed with this plan of care. I have encouraged him to follow-up with his primary care physician and business assistant as soon as he returns home which he states will be very soon. I also cautioned him not to engage extensive travel immediately and to monitor blood pressure and tolerance of medications very closely. Again, I am not generally in favor making so many medications changes simultaneously, however, I feel further optimization is warranted provided his blood pressure is reasonably controlled prior to discharge and an alternative regimen will be much more cumbersome without direct longitudinal supervised care locally. He should be monitored for tolerance prior to discharge. (2) Pulmonary embolism: Code(s): I26.99 - Other pulmonary embolism without acute cor pulmonale Status: Acute Assessment and Plan: Acute pulmonary embolism noted in posterolateral and posteromedial left lower lobe on CT angiogram PE protocol. Patient reports recent swelling in the right lower extremity. -Will obtain lower extremity venous Doppler to assess for DVT. Continue systemic anticoagulation PE dosing. Stressed importance of compliance with medication, monitor for bleeding and concern with concomitant excessive alcohol intake. (3) Elevated troponin: Code(s): R77.8 - Other specified abnormalities of plasma proteins Status: Acute Assessment and Plan: Minimal troponin elevation initially to very likely secondary to hypoxia and pulmonary embolism, type 2 infarction not secondary to acute coronary syndrome and/or plaque rupture. May discontinue aspirin as patient is on full-dose systemic anticoagulation. (4) Community acquired pneumonia: Qualifiers: Laterality: unspecified laterality Qualified Code(s): J18.9 - Pneumonia, unspecified organism Code(s): J18.9 - Pneumonia, unspecified organism Status: Acute Assessment and Plan: Continue management per primary service. Remains on IV antibiotics and is improving significantly. I am uncertain as to why patient has suffered yet another pneumonia such a short period of time. No suggestion of aspiration by history. (5) Hypertension: Code(s): I10 - Essential (primary) hypertension Status: Acute Assessment and Plan: Not ideally controlled, particularly hypertensive in a.m. prior to medications. Very lengthy discussion held with regards to medical management and recommendations in light of new diagnosis LV systolic dysfunction EF 40%. Discussed preference to avoid diltiazem giv
--- NOTE | 2021-01-26 23:40 | PC.NURSE ---
patient to be transferred to [address] [place] [address]. report given to britta hanson rn.
[2021-01-27] VITALS: BP 134/89; PULSE 58; PULSE 61; RESP 20; TEMP 36.2; O2SAT 95
[2021-01-27 04:00] VITALS: BP 135/88; PULSE 70; PULSE 73; RESP 18; TEMP 37.1; O2SAT 97
[2021-01-27 08:00] VITALS: BP 143/99; PULSE 71; RESP 18; TEMP 36.9; O2SAT 92
[2021-01-27 08:23] LABS: Anion Gap 6 mmol/L (8-16); Blood Urea Nitrogen 13 mg/dL (9-20); Calcium 8.7 mg/dL (8.4-10.2); Carbon Dioxide 28 mmol/L (22-30); Chloride 102 mmol/L (98-107); Estimated CRCL calculation 102 ml/min; Estimated Glomerular Filt Rate > 60; Glucose 91 mg/dL (65-110); Potassium 3.4 mmol/L (3.4-5.0); Sodium 136 mmol/L (137-145)
--- NOTE | 2021-01-27 08:41 | PM.PNCARD ---
Progress Note: A&P Assessment and Plan (1) Cardiomyopathy: Code(s): I42.9 - Cardiomyopathy, unspecified Status: Acute Assessment and Plan: New diagnosis EF estimated 40% moderate LV dysfunction although technically difficult study with poor endomyocardial border definition. Discussed EF assessment difficult secondary to poor visualization, recommend echo contrast enhancement although will defer in setting of acute pulmonary embolism. Patient is not currently decompensated heart failure despite significant elevation in BNP obtained in setting of acute hypoxia, pneumonia, and acute pulmonary embolism. Suspect primary etiology secondary to excessive alcohol intake although cannot exclude undiagnosed underlying CAD. He is not endorsing symptoms suggestive of angina nor does he have a known history. -Continue ramipril 2.5mg daily -Continue amlodipine 10mg daily -Start Toprol XL 50mg daily -BP stable thus far, continue to monitor (2) Pulmonary embolism: Code(s): I26.99 - Other pulmonary embolism without acute cor pulmonale Status: Acute Assessment and Plan: Acute pulmonary embolism noted in posterolateral and posteromedial left lower lobe on CT angiogram PE protocol. Patient reports recent swelling in the right lower extremity. - LE Doppler revealed DVT involving R posterior tibial vein. Already receiving systemic anticoagulation for PE. (3) Elevated troponin: Code(s): R77.8 - Other specified abnormalities of plasma proteins Status: Acute Assessment and Plan: Minimal troponin elevation initially to very likely secondary to hypoxia and pulmonary embolism, type 2 infarction not secondary to acute coronary syndrome and/or plaque rupture. (4) Community acquired pneumonia: Qualifiers: Laterality: unspecified laterality Qualified Code(s): J18.9 - Pneumonia, unspecified organism Code(s): J18.9 - Pneumonia, unspecified organism Status: Acute Assessment and Plan: Continue management per primary service. Remains on IV antibiotics and is improving significantly. I am uncertain as to why patient has suffered yet another pneumonia such a short period of time. No suggestion of aspiration by history. (5) Hypertension: Code(s): I10 - Essential (primary) hypertension Status: Acute Assessment and Plan: Better controlled over last 24 hours. Toprol XL 50mg added this a.m. Continue to monitor BP. Daily BMP to monitor renal function and electrolytes. (6) Paroxysmal atrial fibrillation: Code(s): I48.0 - Paroxysmal atrial fibrillation Status: Inactive Assessment and Plan: Reported history of documented atrial fibrillation for which patient was not on aspirin or other systemic anticoagulation. CHADS2 Vasc score previously 1 with history of hypertension. However, Given LV dysfunction score is now 2 warranting systemic anticoagulation for which he will already be maintained for pulmonary embolism. 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 (7) Alcohol abuse: Code(s): F10.10 - Alcohol abuse, uncomplicated Status: Acute Assessment and Plan: He has been counseled on alcohol cessation Subjective Date/time seen: 01/27/21 08:41 Cardiology follow up for CHF, PAF Date of service 01/27/2021: He is complaining of some nausea this morning but otherwise feels well. Has an occasional dry cough. Denies any shortness of breath, chest pain, palpitations. Reviewed medication changes with him. Review of Systems Review of Systems: All systems reviewed & are unremarkable except as noted in HPI and below Constitutional: Constitutional: Reports as per HPI, Reports no additional constitutional complaints, Reports fatigue, Reports lethargy and Reports weakness Eyes: Eyes: Reports as per HPI and Reports no additional eye complaints ENT: Reports system reviewed and no additional complaints,
[2021-01-27 09:14] LABS: Hematocrit 36.5 % (42.0-52.0); Mean Corpuscular HGB Conc 32.9 g/dl (32-36); Mean Corpuscular Hemoglobin 31.4 pg (26-34); Mean Corpuscular Volume 95.5 fl (80-100); Mean Platelet Volume 12.3 fl (7.4-10.4); Platelet Count Result 191 k/mm3 (150-375); Red Blood Count 3.82 M/mm3 (4.6-6.20); Red Cell Distribution Width 15.3 % (11.5-14.5); White Blood Count 5.6 K/mm3 (4.5-10.0)
[2021-01-27] MEDS: POTASSIUM CHLORIDE 20 MEQ PACKET (FOR LIQUID) PO (09:46)
[2021-01-27] MEDS: APIXABAN 5 MG TABLET 10 MG PO (09:46)
[2021-01-27] MEDS: guaiFENesin 12 HR 600 MG TABCR PO (09:46)
[2021-01-27] MEDS: SIMVASTATIN 20 MG TABLET PO (09:46)
[2021-01-27] MEDS: MULTIVITAMINS /C LUTEIN (CENTRUM SILVER) TABLET *BKC 1 TAB PO (09:46)
[2021-01-27] MEDS: amLODIPine BESYLATE 5 MG TABLET 10 MG PO (09:46)
[2021-01-27] MEDS: VENLAFAXINE HCL 75 MG TABLET PO (09:46)
[2021-01-27 09:50] VITALS: PULSE 72
[2021-01-27] MEDS: guaiFENesin/DEXTROMETHORPHAN 10 ML UDC PO (09:53)
[2021-01-27 09:55] VITALS: PULSE 73
[2021-01-27] MEDS: METOPROLOL SUCCINATE EXT REL 50 MG TABCR PO (09:55)
[2021-01-27 12:03] LABS: Protein C Antigen 110 % (70-140)
--- NOTE | 2021-01-27 18:05 | PM.DS ---
DS: Admitting Diagnosis Discharge Date 01/27/21 Admitting Diagnosis Pneumonia Hypoxia Elevated troponin Hypokalemia DS: Discharge Diagnosis Discharge Diagnosis (1) Pulmonary embolism: Qualifiers: Pulmonary embolism type: other Chronicity: acute Acute cor pulmonale presence: without acute cor pulmonale Qualified Code(s): I26.99 - Other pulmonary embolism without acute cor pulmonale Code(s): I26.99 - Other pulmonary embolism without acute cor pulmonale Status: Acute (2) Community acquired pneumonia: Qualifiers: Laterality: unspecified laterality Qualified Code(s): J18.9 - Pneumonia, unspecified organism Code(s): J18.9 - Pneumonia, unspecified organism Status: Resolved (3) Congestive heart failure: Qualifiers: Heart failure chronicity: unspecified Heart failure type: unspecified Qualified Code(s): I50.9 - Heart failure, unspecified Code(s): I50.9 - Heart failure, unspecified Status: Acute (4) Acute respiratory failure with hypoxia: Code(s): J96.01 - Acute respiratory failure with hypoxia Status: Resolved (5) Hypokalemia: Code(s): E87.6 - Hypokalemia Status: Acute Assessment and Plan: Patient was discharged with oral supplementation in place DS: Summary Hospital Course Reason for hospitalization: Please see admission and discharge diagnosis Hospital Course: 65-year-old male who presents to the ER with chief complaint of shortness of breath. He has been having intermittent episodes of shortness of breath prior to coming to the ER. He thought the symptoms were similar to when he had prior episodes of AFib and he to the ER for evaluation. The patient was treated with pneumonia about 1 month ago and his symptoms initially got better but then worsened. He did notice some small med trace edema to bilateral lower extremities and at times felt as if his heart rate was irregular. He had never been diagnosed with heart failure in the past. In the ER he had noticed to have hypoxia with sats of 87%. CTA performed in the ER demonstrated mild left lower lobe pulmonary embolism diffuse patchy bilateral pulmonary infiltrates and mild pleural effusions. He was admitted and treated with empiric antibiotic therapy with azithromycin and Rocephin. He was tested for COVID and found to be negative. He was started on Eliquis 10 mg p.o. b.i.d. with a plan to transition to 5 mg p.o. b.i.d. on the 29 of January. Cardiology was consulted due to patient having elevated troponins although his troponin profile is flat. He was started on 81 mg aspirin and metoprolol 50 mg p.o. b.i.d. as well as Norvasc. He had echocardiogram with results as discussed under discharge instructions. Cardiology started the patient on Altace and Norvasc. The patient did have elevated transaminases which were suspected to be due to patient's frequent alcohol consumption. His AST did trend towards normal and ALT was still mildly elevated at 63 on the . Patient had hypoxic respiratory failure initially and required as much as 10 L nasal cannula but oxygen was eventually weaned down to room air on 01/26/2021. The patient had been off of supplemental oxygen from was 24 hours at the time of discharge.. Status at Discharge Cognitive/behavioral status at discharge: Normal Functional status at discharge: independent ambulation Overall status at discharge: patient is back to baseline Time Spent with Patient Time attestation: Total time spent providing and/or coordinating discharge services:55 Time spent: Greater than 30 minutes Specific discharge activities: Please see discharge instructions Exam Narrative: PHYSICAL EXAM: WEIGHT 98.7 kg BMI 29.5 General: Overweight, no acute distress HEENT: Mucous membranes are moist, no oral pharyngeal erythema, crowded posterior oropharynx, large neck circumference, pupils are equal and reactive Respiratory: Clear to auscultati
[2021-01-27 19:09] LABS: Anti Cardio Antibody IgM 2.6 MPL-U/mL (<20.0); Anti Cardiolipin Antibody IgA <2.0 APL-U/mL (<20.0); Anti Cardiolipin Antibody IgG <2.0 GPL-U/mL (<20.0)
[2021-01-28 20:16] LABS: Factor V (Leiden) Mutation NEGATIVE
== END 2021-01-27 13:12 | disposition home or self-care (01) | DRG 134 ==
LOC: ANHED 01-23 04:02 → ANHIMU 01-23 04:56 → ANH2MED 01-26 23:46
PROVIDERS: Family Medicine; Internal Medicine; Nurse Practitioner; Admitting Provider Internal Medicine; Emergency Provider Emergency Medicine; Visit Provider Internal Medicine
DX: I26.99 Other pulmonary embolism without acute cor pulmonale (principal); J96.01 Acute respiratory failure with hypoxia; J18.9 Pneumonia, unspecified organism; I11.0 Hypertensive heart disease with heart failure; I50.20 Unspecified systolic (congestive) heart failure; I42.9 Cardiomyopathy, unspecified; Z20.822 Contact with and (suspected) exposure to COVID-19; I48.0 Paroxysmal atrial fibrillation; F10.10 Alcohol abuse, uncomplicated; R74.8 Abnormal levels of other serum enzymes; R77.8 Other specified abnormalities of plasma proteins; F32.A Depression, unspecified; E78.5 Hyperlipidemia, unspecified; E87.6 Hypokalemia; I82.441 Acute embolism and thrombosis of right tibial vein; Z79.899 Other long term (current) drug therapy
CPT/HCPCS: 36415; 36600; 71045; 71046; 71275; 80048; 80053; 80061; 80076; 81241; 82805; 82948; 83605; 83735; 83880; 84439; 84443; 84484; 85025; 85027; 85302; 85303; 85305; 85306; 85610; 85730; 86147; 87040; 87077; 93005; 93306; 93970; 96361; 96365; 96368; 96375; 99285; A9270; C9803; J0456; J0696; J1100; J1650; J7030; Q9967; U0003; U0005